=== PATIENT | female | born 1955 | race Caucasian/White ===

== ENCOUNTER 2017-06-13 09:59 | Emergency (ER) | payer OTHER ==
[~2017-06-13] VITALS: Ht 170.1 cm; Wt 93.0 kg
[2017-06-13] MEDS ORDERED: TRAMADOL HCL50 MG PO (11:51)
== END 2017-06-13 12:04 | disposition home or self-care (01) ==
LOC: ED 09:59
DX: M54.2 Cervicalgia (principal); V89.2XXA Person injured in unspecified motor-vehicle accident, traffic, initial encounter; Y93.89 Activity, other specified; Y92.413 State road as the place of occurrence of the external cause; Y99.9 Unspecified external cause status